=== PATIENT | male | born 1940 | race Caucasian/White ===

== ENCOUNTER 2016-05-23 06:35 | Emergency (ER) | payer MEDICARE, MEDICAID ==
[2016-05-23 07:03] VITALS: BP 155/58
[2016-05-23] MEDS ORDERED: Ketorolac 30 MG/ML SDV IM ONE (07:27)
--- NOTE | 2016-05-23 07:38 | EDM.PDOC ---
ED HPI GENERAL MEDICAL PROBLEM - General Chief Complaint: General Stated Complaint: RIGHT LEG PAIN Time Seen by Provider: 05/23/16 07:15 Source of Information: Reports: Patient History Limitations: Reports: No limitations - History of Present Illness INITIAL COMMENTS - FREE TEXT/NARRATIVE: PT STATES HE HAS CHRONIC BACK AND LEG PAIN AND WOKE UP THIS AM TO USE THE BATHROOM AND HAD PAIN IN BACK/RIGHT LE. DECIDED TO CALL EMS. SEEN BY CHIROPRACTOR FEW DAYS AGO FOR MANIPULATION. STATES HE FORGOT TO TAKE HIS ARTHRITIS MEDICINE LAST NIGHT. DENIES FALL, CP, SOB, N/V/D, FLANK OR ABD PAIN. Onset: gradual Duration: Chronic Location: Reports: back, lower extremity, right Quality: Reports: Ache Severity: mild Improves with: Reports: Rest Worsens with: Reports: Movement Context: Reports: Activity Associated Symptoms: Reports: no other symptoms - Related Data Allergies Allergy/AdvReac Type Severity Reaction Status Date / Time hydrochlorothiazide Allergy UNKNOWN Verified 05/23/16 07:11 Home Meds: Home Meds Ascorbate Calcium [Vitamin C] 500 mg PO DAILY 12/11/14 [History] Aspirin [Ecotrin] 325 mg PO DAILY 12/11/14 [History] Calcium Carbonate/Vitamin D3 [Calcium Carbonate/Vitamin D 1250 MG-200 Unit] 1 tab PO DAILY 12/11/14 [History] Levothyroxine [Synthroid] 100 mcg PO ACBREAKFAST 12/11/14 [History] Metoprolol Tartrate 1.5 tab PO ACBREAKFAST 12/11/14 [History] Metoprolol Tartrate 2 tab PO BEDTIME 12/11/14 [History] Multivit-Min/FA/Lycopene/Lut [Centrum Silver Tablet] 1 each PO DAILY 12/11/14 [ History] Thioridazine [Mellaril] 100 mg PO DAILY 12/11/14 [History] amLODIPine [Norvasc] 7.5 mg PO DAILY 12/11/14 [History] atorvaSTATin [Lipitor] 10 mg PO BEDTIME 12/11/14 [History] Acetaminophen [Arthritis Pain] 650 mg PO TID PRN MDD \ 05/23/16 [History] Past Medical History HEENT History: Reports: Hard of hearing, Impaired vision Cardiovascular History: Reports: High cholesterol, Hypertension Gastrointestinal History: Reports: Chronic constipation Genitourinary History: Reports: Chronic renal insuffiency, Urinary incontinence Musculoskeletal History: Reports: Arthritis, Back pain, chronic Psychiatric History: Reports: Psych Hospitalization(s), Schizophrenia Endocrine/Metabolic History: Reports: Diabetes, type II, Hypothyroidism, Obesity /BMI 30+ - Infectious Disease History Infectious Disease History: Reports: Measles, Mumps - Past Surgical History HEENT Surgical History: Reports: Cataract surgery, Tonsillectomy Social & Family History - Tobacco Use Smoking Status *Q: Current Every Day Smoker Years of Tobacco use: 50 Packs/Tins Daily: 0.5 Second Hand Smoke Exposure: No - Caffeine Use Caffeine Use: Reports: Coffee - Recreational Drug Use Recreational Drug Use: No ED ROS GENERAL - Review of Systems Review Of Systems: ROS reveals no pertinent complaints other than HPI. Constitutional: Reports: no symptoms HEENT: Reports: No symptoms Respiratory: Reports: No Symptoms Cardiovascular: Reports: No symptoms Endocrine: Reports: no symptoms GI/Abdominal: Reports: No symptoms : Reports: no symptoms Musculoskeletal: Reports: back pain, leg pain Skin: Reports: no symptoms Neurological: Reports: No Symptoms Psychiatric: Reports: No symptoms Hematologic/Lymphatic: Reports: no symptoms Immunologic: Reports: no symptoms ED EXAM, GENERAL - Physical Exam Exam: See Below Exam Limited By: No limitations General Appearance: alert, WD/WN, no apparent distress Throat/Mouth: Normal inspection, Normal oropharynx, No airway compromise Head: atraumatic, normocephalic Neck: normal inspection, supple, non-tender, full range of motion Respiratory/Chest: no respiratory distress, lungs clear Cardiovascular: regular rate, rhythm GI/Abdominal: normal bowel sounds, soft, non tender Back Exam: paraspinal tenderness (RIGHT LUMBAR). No: CVA tenderness (L), CVA tenderness (R) Extremities: normal inspection, normal range of motion, non-tender, no pedal edema Neurological: alert, oriented, normal cognition Psychiatric: normal affect, normal mood Skin Exam: Warm, Dry, Intact, Normal color, No rash Lymphatic: no adenopathy Course - Vital Signs Last Recorded V/S: Last Vital Signs Temp 98.5 F 05/23/16 06:55 Pulse 61 05/23/16 06:55 Resp 16 05/23/16 06:55 BP 155/58 H 05/23/16 06:55 Pulse Ox 97 05/23/16 06:55 - Orders/Labs/Meds Meds: Medications Discontinued Medications Generic Name Dose Route Start Last Admin Trade Name Bora PRN Reason Stop Dose Admin Ketorolac Tromethamine 30 mg 05/23/16 07:27 Toradol IM 05/23/16 07:28 ONETIME ONE - Re-Assessments/Exams Free Text/Narrative Re-Assessment/Exam: 05/23/16 07:41 PT AFEBRILE, NONTOXIC APPEARING, DENIES PAIN AT THIS TIME, TORADOL 30MG GIVEN IM. WILL F/U WITH PCP / CHIROPRACTOR Departure - Departure Time of Disposition: 07:43 Disposition: Home, Self-Care 01 Condition: good Clinical Impression: Back pain of lumbosacaral region with sciatica Instructions: Sciatica, Back Pain, Adult, [id number] Forms: ED Department Discharge Additional Instructions: F/U WITH PCP AND CHIROPRACTOR. RETURN TO ER SOONER IN SYMPTOMS CONTINUE - Assessment/Plan Assessment:: CHRONIC BACK PAIN / RADICULAR PAIN TO LE Plan: F/U WITH PCP / CHIROPRACTOR
== END 2016-05-23 08:10 | disposition home or self-care (01) ==
LOC: KA.ED 06:35
DX: M54.41 Lumbago with sciatica, right side (principal); E78.00 Pure hypercholesterolemia, unspecified; I12.9 Hypertensive chronic kidney disease with stage 1 through stage 4 chronic kidney disease, or unspecified chronic kidney disease; N18.9 Chronic kidney disease, unspecified; M19.90 Unspecified osteoarthritis, unspecified site; E11.9 Type 2 diabetes mellitus without complications; E03.9 Hypothyroidism, unspecified; E66.9 Obesity, unspecified; F17.210 Nicotine dependence, cigarettes, uncomplicated; Z98.49 Cataract extraction status, unspecified eye; Z88.8 Allergy status to other drugs, medicaments and biological substances; Z79.82 Long term (current) use of aspirin; Z79.899 Other long term (current) drug therapy; Z98.890 Other specified postprocedural states
CPT/HCPCS: 96372; 99283; J1885

== ENCOUNTER 2016-08-20 16:21 | Emergency (ER) | payer MEDICARE, MEDICAID ==
--- NOTE | 2016-08-20 16:45 | EDM.PDOC ---
ED HPI GENERAL MEDICAL PROBLEM - General Stated Complaint: NO BOWEL MOVEMENT 6 DAYS Time Seen by Provider: 08/20/16 16:30 Source of Information: Reports: Patient History Limitations: Reports: No Limitations - History of Present Illness INITIAL COMMENTS - FREE TEXT/NARRATIVE: Patient has not had a BM in 6 days. He has some abdominal discomfort and is worried about it. No rectal urgency. No N/V. No F/C. No past abdominal surgeries or similar episodes Onset: Gradual Duration: Day(s): (6) Location: Reports: Abdomen Quality: Reports: Other (fullness) Severity: Mild Improves with: Reports: None Worsens with: Reports: None Associated Symptoms: Reports: No Other Symptoms - Related Data Allergies Allergy/AdvReac Type Severity Reaction Status Date / Time hydrochlorothiazide Allergy UNKNOWN Verified 05/23/16 07:11 Home Meds: Home Meds Ascorbate Calcium [Vitamin C] 500 mg PO DAILY 12/11/14 [History] Aspirin [Ecotrin] 325 mg PO DAILY 12/11/14 [History] Calcium Carbonate/Vitamin D3 [Calcium Carbonate/Vitamin D 1250 MG-200 Unit] 1 tab PO DAILY 12/11/14 [History] Levothyroxine [Synthroid] 100 mcg PO ACBREAKFAST 12/11/14 [History] Multivit-Min/FA/Lycopene/Lut [Centrum Silver Tablet] 1 each PO DAILY 12/11/14 [ History] RX: Metoprolol Tartrate 1.5 tab PO ACBREAKFAST 12/11/14 [History] RX: Metoprolol Tartrate 2 tab PO BEDTIME 12/11/14 [History] Thioridazine [Mellaril] 100 mg PO DAILY 12/11/14 [History] amLODIPine [Norvasc] 7.5 mg PO DAILY 12/11/14 [History] atorvaSTATin [Lipitor] 10 mg PO BEDTIME 12/11/14 [History] Acetaminophen [Arthritis Pain] 650 mg PO TID PRN MDD \ 05/23/16 [History] Past Medical History HEENT History: Reports: Hard of Hearing, Impaired Vision Cardiovascular History: Reports: High Cholesterol, Hypertension Gastrointestinal History: Reports: Chronic Constipation Genitourinary History: Reports: Chronic Renal Insuffiency, Urinary Incontinence Musculoskeletal History: Reports: Arthritis, Back Pain, Chronic Psychiatric History: Reports: Psych Hospitalization(s), Schizophrenia Endocrine/Metabolic History: Reports: Diabetes, Type II, Hypothyroidism, Obesity /BMI 30+ - Infectious Disease History Infectious Disease History: Reports: Measles, Mumps - Past Surgical History HEENT Surgical History: Reports: Cataract Surgery, Tonsillectomy Social & Family History - Tobacco Use Smoking Status *Q: Current Every Day Smoker Years of Tobacco use: 50 Packs/Tins Daily: 0.5 Second Hand Smoke Exposure: No - Caffeine Use Caffeine Use: Reports: Coffee - Recreational Drug Use Recreational Drug Use: No ED ROS GENERAL - Review of Systems Review Of Systems: ROS reveals no pertinent complaints other than HPI. ED EXAM, GI/ABD - Physical Exam Exam: See Below Exam Limited By: No Limitations General Appearance: Alert, WD/WN, No Apparent Distress Eyes: Bilateral: Normal Appearance, EOMI Ears: Normal External Exam Nose: Normal Inspection Throat/Mouth: Normal Inspection, Normal Oropharynx Head: Atraumatic, Normocephalic Neck: Normal Inspection, Supple, Non-Tender, Full Range of Motion Respiratory/Chest: No Respiratory Distress, Lungs Clear, Normal Breath Sounds, No Accessory Muscle Use Cardiovascular: Normal Peripheral Pulses, Regular Rate, Rhythm, No Edema, No JVD GI/Abdominal: Soft, Non-Tender, Hyperactive Bowel Sounds, Distention (mild) Back Exam: Normal Inspection Extremities: Normal Inspection, No Pedal Edema, Normal Capillary Refill Neurological: Alert, Oriented Psychiatric: Normal Affect, Normal Mood, Flat Affect (likely secondary to chronic psychiatric problems and treatment) Skin Exam: Warm, Dry, Intact, Normal Color, No Rash Lymphatic: No Adenopathy Course - Orders/Labs/Meds Orders: Active Orders 24 hr Category Date Time Status Enema [RC] ASDIRECTED Care 08/20/16 17:04 Ordered KUB [Abdomen 1V Flat] [CR] Stat Exams 08/20/16 16:37 Taken - Re-Assessments/Exams Free Text/Narrative Re-Assessment/Exam: 08/20/16 17:05 Feels better with SS enema Departure - Departure Time of Disposition: 18:00 Disposition: Home, Self-Care 01 Condition: Good Clinical Impression: Impaction of colon - Discharge Information - Problem List Review Problem List Initiated/Reviewed/Updated: No - My Orders Last 24 Hours: My Active Orders 08/20/16 16:37 KUB [Abdomen 1V Flat] [CR] Stat 08/20/16 17:04 Enema [RC] ASDIRECTED - Assessment/Plan Last 24 Hours: My Active Orders 08/20/16 16:37 KUB [Abdomen 1V Flat] [CR] Stat 08/20/16 17:04 Enema [RC] ASDIRECTED Assessment:: Constipation with fecal impaction Plan: Miralax daily for a couple weeks, then back off to once ever 2-3 days increase fiber, fluids F/U with PCP
[2016-08-20 17:40] VITALS: BP 151/96
== END 2016-08-20 18:00 | disposition home or self-care (01) ==
LOC: KA.ED 16:21
DX: K56.49 Other impaction of intestine (principal); E78.00 Pure hypercholesterolemia, unspecified; I12.9 Hypertensive chronic kidney disease with stage 1 through stage 4 chronic kidney disease, or unspecified chronic kidney disease; N18.9 Chronic kidney disease, unspecified; E11.9 Type 2 diabetes mellitus without complications; E03.9 Hypothyroidism, unspecified; E66.9 Obesity, unspecified; F17.210 Nicotine dependence, cigarettes, uncomplicated; M19.90 Unspecified osteoarthritis, unspecified site; Z88.8 Allergy status to other drugs, medicaments and biological substances; Z79.82 Long term (current) use of aspirin; Z79.899 Other long term (current) drug therapy; Z98.890 Other specified postprocedural states; Z98.49 Cataract extraction status, unspecified eye; Z68.29 Body mass index [BMI] 29.0-29.9, adult
CPT/HCPCS: 74000; 99283

== ENCOUNTER 2017-10-21 06:00 | Day surgery (SDC) | payer MEDICARE, MEDICAID ==
[~2017-10-21 06:00] MED LIST: Sodium Chloride 0.9% 1,000 ML IV SCH; Sodium Chloride 0.9% 5 ML Syringe FLUSH PRN
[2017-10-21] MEDS ORDERED: Moxifloxacin 0.5% Ophth Soln 3 ML Bottle EYELF ONE (06:30)
[2017-10-21] MEDS ORDERED: Gatifloxacin 0.5% Ophth Soln 2.5 ML Bot EYELF SCH (06:30)
[2017-10-21] MEDS: Phenylephrine 10% Ophth Soln 5 ML Bot EYELF SCH ×3 (06:34→06:55)
[2017-10-21] MEDS: Cyclopentolate 1% Opth Soln 2 ML Bottle EYELF SCH ×3 (06:39→07:02)
[2017-10-21] MEDS ORDERED: Water For Irrigation,Sterile 1,500 ML Container IRR ONE (07:46)
[2017-10-21] MEDS ORDERED: Balanced Salt Solution Ophth Irrig 15 ML Bottle EYELF ONE (07:46)
[2017-10-21] MEDS ORDERED: Balanced Salt Solution Plus Ophth Irrig 500 ML Bottle IOCULAR ONE (07:47)
[2017-10-21] MEDS ORDERED: EPINEPHrine 1 MG/ML SDV ONE (07:47)
[2017-10-21] MEDS ORDERED: Carbachol 0.01% Intraocular 1.5 ML Vial EYELF ONE (07:47)
[2017-10-21] MEDS ORDERED: Dexamethasone/Neomycin/Polymyxin B Ophth Oint 3.5 GM Tube EYELF ONE (07:47)
[2017-10-21] MEDS ORDERED: Lidocaine 2% with EPINEPHrine 1:100,000 20 ML MDV INJECT ONE (07:48)
[2017-10-21] MEDS ORDERED: Lidocaine 1% 10 ML MDV INJECT ONE (07:48)
[2017-10-21] MEDS ORDERED: Hyaluronate Sodium 1% 0.85 ML Syringe IOCULAR ONE ×2 (07:49)
[2017-10-21] MEDS ORDERED: Tetracaine HCl/PF 0.5% 4 ML Bottle EYEBOTH ONE (07:49)
[2017-10-21 08:37] VITALS: BP 171/72
--- NOTE | 2017-10-21 15:48 | OR ---
DATE OF SURGERY: 10/21/2017 SURGEON: Wali Broussard MD PREOPERATIVE DIAGNOSIS: Cataract, left eye. POSTOPERATIVE DIAGNOSIS: Cataract, left eye. OPERATION PERFORMED: Phacoemulsification with posterior chamber lens insertion, left eye. HISTORY: The patient presents at this time with increasing amount of difficulty seeing to read and difficulty seeing to watch TV. The vision for the left eye is 20/150 -1. The left lens has a 3+ nuclear sclerosis and 3 to 4+ posterior subcapsular cataract. This is a combined cataract and a cataract of aging. OPERATIVE PROCEDURE: The patient was taken the operating room where appropriate anesthesia, sedation, and monitoring were provided. A retrobulbar block was given on the left side. The eye was massaged and was found to be appropriately soft. The eye and eyelids were then prepped and draped in the usual sterile manner. A lid speculum was placed. A micro sharp blade was used to enter the anterior chamber inferior temporally and then Xylocaine and Healon were irrigated in the eye through this site. Then using a 2.85 mm angle blade, an incision was made at the limbus. Healon was irrigated into the eye through this site. Then using a cystotome, the anterior capsulorrhexis was created. The lens nucleus was hydrodissected using a 27-gauge cannula and balanced salt solution. The phacoemulsification unit was introduced through the temporal site and the Dung spatula through the inferior temporal site. In so doing, the anterior two-third of the lens nucleus was phacoemulsified. During this process, it was noted that the iris of the eye was becoming more floppy. Therefore, a Malyugin ring was placed to keep the pupil dilated. The remainder of the phacoemulsification was accomplished without difficulty. The cortical fragments of the lens were removed using the irrigation aspiration unit. The posterior capsule was polished. Healon was irrigated into the eye. The Malyugin ring was removed. The posterior chamber lens was inserted, it was rotated into position. The Healon was irrigated out of the eye. Miostat was irrigated in the eye and the pupil rounded nicely. Three interrupted 10-0 nylon sutures were placed through the temporal corneal incision site and an additional interrupted 10-0 nylon suture was placed in the inferior temporal corneal incision site. The wound was tested and was found to be appropriately tight. Maxitrol ointment was placed in the patient's eye. The eyelids were closed and an eye patch and a calabrese shield were placed. The patient left the operating room in good condition. /[id number]/MODL
== END 2017-10-21 09:24 | disposition home or self-care (01) ==
LOC: KA.SDS 06:00
PROVIDERS: ATTEND Ophthalmology
DX: E11.36 Type 2 diabetes mellitus with diabetic cataract (principal); H25.812 Combined forms of age-related cataract, left eye; I12.9 Hypertensive chronic kidney disease with stage 1 through stage 4 chronic kidney disease, or unspecified chronic kidney disease; E11.22 Type 2 diabetes mellitus with diabetic chronic kidney disease; N18.4 Chronic kidney disease, stage 4 (severe); F20.0 Paranoid schizophrenia; Z87.891 Personal history of nicotine dependence; E78.5 Hyperlipidemia, unspecified; Z79.82 Long term (current) use of aspirin; Z79.899 Other long term (current) drug therapy; Z88.8 Allergy status to other drugs, medicaments and biological substances
CPT/HCPCS: 00142; 66984; 82962; A9270; C1780; J0171; J7030

== ENCOUNTER 2018-09-10 15:14 | Emergency (ER) | payer MEDICARE, MEDICAID ==
[2018-09-10] MEDS ORDERED: Acetaminophen/HYDROcodone 325-5 MG Tab PO ONE (15:55)
--- NOTE | 2018-09-10 16:10 | EDM.PDOC ---
ED HPI GENERAL MEDICAL PROBLEM - General Chief Complaint: General Stated Complaint: PAIN Time Seen by Provider: 09/10/18 15:55 Source of Information: Reports: Patient History Limitations: Reports: No Limitations - History of Present Illness INITIAL COMMENTS - FREE TEXT/NARRATIVE: Patient's 78-year-old gentleman who presents from [facility] with a complaint of chronic back pain. Patient typically takes tramadol and Tylenol PM for chronic low back pain. Patient complained of his low back pain today and nursing facility recommended clinic visit. However, patient refused so staff decided to send patient to the emergency department. Patient states about 3 weeks ago he did have a fall from a walking position with his walker, described as down to his knees and then forward. He had a lumbar spine x-ray since which showed degenerative joint disease, however, no fractures or dislocation. Patient denies chest pain, shortness of breath, headache, blurry vision, abdominal pain, nausea, vomiting, diarrhea, or pain anywhere other than his lower back. Onset: Gradual Duration: Chronic Location: Reports: Back Quality: Reports: Ache Severity: Mild Improves with: Reports: None Worsens with: Reports: Movement Associated Symptoms: Reports: No Other Symptoms Lower Back Pain Score (Numeric/FACES): 7 - Related Data Allergies Allergy/AdvReac Type Severity Reaction Status Date / Time hydrochlorothiazide Allergy UNKNOWN Verified 10/21/17 06:13 Home Meds: Home Meds Aspirin [Ecotrin] 325 mg PO DAILY 12/11/14 [History] Levothyroxine [Synthroid] 100 mcg PO ACBREAKFAST 12/11/14 [History] Metoprolol Tartrate 150 mg PO ACBREAKFAST 12/11/14 [History] Metoprolol Tartrate 200 mg PO BEDTIME 12/11/14 [History] Multivit-Min/FA/Lycopene/Lut [Centrum Silver Tablet] 1 each PO DAILY 12/11/14 [ History] Thioridazine [Mellaril] 100 mg PO BEDTIME 12/11/14 [History] amLODIPine [Norvasc] 5 mg PO DAILY 12/11/14 [History] atorvaSTATin [Lipitor] 10 mg PO BEDTIME 12/11/14 [History] Acetaminophen [Arthritis Pain] 650 mg PO QID MDD 3000 05/23/16 [History] Menthol [Cough Drops] 5 mg PO Q1H PRN 10/17/17 [History] Polyethylene Glycol 8000 [Polyethylene Glycol] 17 gm PO DAILY 10/17/17 [History] Sodium Chloride [Saline Nasal Neligh] 2 spray NASBOTH TID 10/17/17 [History] traMADol [Ultram] 50 mg PO TID 10/17/17 [History] Acetaminophen 650 mg PO Q4HR PRN MDD 3000 09/10/18 [History] Calcium Carbonate [Tums] 1,000 mg PO BEDTIME 09/10/18 [History] Calcium Carbonate [Tums] 1,000 mg PO Q4HR PRN 09/10/18 [History] Calcium Carbonate/Vitamin D3 [Calcium 600 + Vit D 400 Softgl] 1 each PO DAILY [History] Fluticasone Propionate [Flonase] 2 spray NASBOTH DAILY 09/10/18 [History] Sodium Chloride [Saline Nasal Neligh] 1 spray NASBOTH BID PRN 09/10/18 [History] Past Medical History HEENT History: Reports: Hard of Hearing, Impaired Vision Cardiovascular History: Reports: High Cholesterol, Hypertension Respiratory History: Reports: None Gastrointestinal History: Reports: Chronic Constipation, GERD, Other (See Below) Other Gastrointestinal History: Heartburn Genitourinary History: Reports: Chronic Renal Insuffiency Musculoskeletal History: Reports: Arthritis, Back Pain, Chronic, Osteoarthritis Neurological History: Reports: None Psychiatric History: Reports: Psych Hospitalization(s), Schizophrenia Endocrine/Metabolic History: Reports: Diabetes, Type II, Hypothyroidism, Obesity /BMI 30+ Hematologic History: Reports: None Immunologic History: Reports: None Oncologic (Cancer) History: Reports: None Dermatologic History: Reports: None - Infectious Disease History Infectious Disease History: Reports: Chicken Pox, Measles, Mumps - Past Surgical History HEENT Surgical History: Reports: Cataract Surgery, Tonsillectomy Cardiovascular Surgical History: Reports: None GI Surgical History: Reports: None Dermatological Surgical History: Reports: None Social & Family History - Family History Family Medical History: Noncontributory - Tobacco Use Smoking Status *Q: Never Smoker - Caffeine Use Caffeine Use: Reports: Coffee - Recreational Drug Use Recreational Drug Use: No ED ROS GENERAL - Review of Systems Review Of Systems: ROS reveals no pertinent complaints other than HPI. Constitutional: Reports: No Symptoms HEENT: Reports: No Symptoms Respiratory: Reports: No Symptoms Cardiovascular: Reports: No Symptoms Endocrine: Reports: No Symptoms GI/Abdominal: Reports: No Symptoms : Reports: No Symptoms Musculoskeletal: Reports: Back Pain (Of chronic nature) Skin: Reports: No Symptoms Neurological: Reports: No Symptoms Psychiatric: Reports: No Symptoms Hematologic/Lymphatic: Reports: No Symptoms Immunologic: Reports: No Symptoms ED EXAM, GENERAL - Physical Exam Exam: See Below Exam Limited By: No Limitations General Appearance: Alert, WD/WN, No Apparent Distress Nose: Normal Inspection, Normal Mucosa, No Blood Throat/Mouth: Normal Inspection, Normal Oropharynx, No Airway Compromise Head: Atraumatic, Normocephalic Neck: Normal Inspection, Supple, Non-Tender, Full Range of Motion Respiratory/Chest: No Respiratory Distress, Lungs Clear, Normal Breath Sounds, No Accessory Muscle Use, Chest Non-Tender Cardiovascular: Regular Rate, Rhythm, No Murmur GI/Abdominal: Normal Bowel Sounds, Soft, Non-Tender Back Exam: Paraspinal Tenderness (Minimal lumbar with range of motion). No: CVA Tenderness (L), CVA Tenderness (R) Neurological: Alert, Oriented, Normal Cognition Psychiatric: Normal Affect, Normal Mood Skin Exam: Warm, Dry, Intact, Normal Color, No Rash Lymphatic: No Adenopathy Course - Vital Signs Last Recorded V/S: Last Vital Signs Temp 97.3 F 09/10/18 15:14 Pulse 74 09/10/18 15:35 Resp 20 09/10/18 15:14 BP 191/88 H 09/10/18 15:35 Pulse Ox 93 L 09/10/18 15:14 - Orders/Labs/Meds Meds: Medications Discontinued Medications Generic Name Dose Route Start Last Admin Trade Name Bora PRN Reason Stop Dose Admin Hydrocodone Bitart/Acetaminophen 1 tab 09/10/18 15:55 09/10/18 15:59 [place] 325-5 Mg PO 09/10/18 15:56 1 tab ONETIME ONE Administration - Re-Assessments/Exams Free Text/Narrative Re-Assessment/Exam: 09/10/18 16:10 Patient afebrile, vital signs stable, 5 mg hydrocodone given with moderate pain relief. Patient will be transferred back to nursing facility for [facility] follow-up. Departure - Departure Time of Disposition: 16:12 Disposition: DC/Tfer to Medicaid Nur Fac 64 Condition: Good Clinical Impression: Chronic back pain greater than 3 months duration - Discharge Information Instructions: Chronic Back Pain, [id number] Referrals: Leticia Hallman MD [Primary Care Provider] - Additional Instructions: Follow-up at [facility]. Return to emergency department sooner if symptoms continue or worsen. - Assessment/Plan Assessment:: Chronic back pain Plan: Follow-up with [facility]
[2018-09-10 16:14] VITALS: BP 157/90; PULSE 80
== END 2018-09-10 16:25 ==
LOC: KA.ED 15:14
DX: G89.29 Other chronic pain (principal); M54.5 Low back pain; I12.9 Hypertensive chronic kidney disease with stage 1 through stage 4 chronic kidney disease, or unspecified chronic kidney disease; N18.9 Chronic kidney disease, unspecified; E11.22 Type 2 diabetes mellitus with diabetic chronic kidney disease; E03.9 Hypothyroidism, unspecified; E78.00 Pure hypercholesterolemia, unspecified; Z79.82 Long term (current) use of aspirin; Z79.899 Other long term (current) drug therapy; Z88.8 Allergy status to other drugs, medicaments and biological substances
CPT/HCPCS: 99284; A9270; 99283

== ENCOUNTER 2021-06-04 07:54 | Emergency (ER) | payer MEDICARE, MEDICAID ==
[2021-06-04 08:37] VITALS: BP 122/54; PULSE 50
[2021-06-04 09:22] LABS: ANION GAP 14.4 mmol/L (5-15)
[2021-06-04] MEDS ORDERED: Furosemide 40 MG/4 ML VIAL IVPUSH ONE (09:56)
[2021-06-04] MEDS ORDERED: cefTRIAXone 1 GM Vial IVPUSH ONE (09:56)
[2021-06-04] MEDS ORDERED: Insulin Regular, Human 100 Units/ML 10 ML Vial IV ONE (09:57)
[2021-06-04] MEDS ORDERED: 50% Dextrose in Water 50 ML Syringe IVPUSH ONE (09:57)
[2021-06-04] MEDS ORDERED: Albuterol 0.083% 2.5 MG/3 ML Neb Soln NEB ONE (09:58)
[2021-06-04] MEDS: Sodium Chloride 0.9% 10 ML Syringe FLUSH PRN ×2 (10:21→11:22)
== END 2021-06-04 13:20 ==
LOC: KA.ED 07:54
DX: J18.9 Pneumonia, unspecified organism (principal); I12.0 Hypertensive chronic kidney disease with stage 5 chronic kidney disease or end stage renal disease; E11.22 Type 2 diabetes mellitus with diabetic chronic kidney disease; N04.9 Nephrotic syndrome with unspecified morphologic changes; N18.5 Chronic kidney disease, stage 5; E87.5 Hyperkalemia; K21.9 Gastro-esophageal reflux disease without esophagitis; E78.00 Pure hypercholesterolemia, unspecified; E03.9 Hypothyroidism, unspecified; E66.9 Obesity, unspecified; Z88.8 Allergy status to other drugs, medicaments and biological substances; Z79.899 Other long term (current) drug therapy; Z79.82 Long term (current) use of aspirin; Z68.39 Body mass index [BMI] 39.0-39.9, adult
CPT/HCPCS: 36415; 71045; 80053; 83605; 83880; 84484; 85025; 93010; 94640; 96374; 96375; 99284; 99285-25; J0696; J1940; J3490; J7613-GY